=== PATIENT | male | born 1965 | race Caucasian/White ===

== ENCOUNTER → 2019-09-19 | Outpatient (CLI) | payer OTHER ==
--- NOTE | 2019-09-20 08:00 | REPVR ---
PROCEDURE INFORMATION: Exam: MR Lumbar Spine Without Contrast. Exam date and time: 09/19/2019 5:59 PM Age: 54 years old Clinical indication: Condition or disease; Disc degeneration; Lumbar region; Additional info: Other intervertebral disc degeneration lumbar region TECHNIQUE: Imaging protocol: Multiplanar magnetic resonance images of the lumbar spine without intravenous contrast. COMPARISON: No relevant prior studies available. FINDINGS: Vertebrae: Vertebral heights are maintained. Mild grade 1 anterior listhesis of L5 on S1 with uncovering of posterior disc. Spinal cord: Normal signal. No cord compression. L1-L2: Mild diffuse disc bulge with central and right paracentral small disc protrusion with annular fissure, bilateral facet joint arthropathy and ligamentum flavum hypertrophy resulting in mild indentation on thecal sac. Bilateral neural foramina are patent. L2-L3: Mild diffuse disc bulge without any significant central spinal canal stenosis or neural foraminal narrowing. L3-L4: Mild diffuse disc bulge with bilateral facet joint arthropathy and ligamentum flavum hypertrophy without any significant central spinal canal stenosis or left neural foraminal narrowing. Mild right neural foraminal narrowing. L4-L5: Mild diffuse disc bulge with small central disc protrusion, bilateral facet joint arthropathy and ligamentum flavum hypertrophy causing mild indentation on thecal sac and mild right neural foraminal narrowing. Left neural foramina is patent. L5-S1: Mild loss of disc space with disc desiccation. Mild grade 1 anterior listhesis of L5 on S1 measuring approximately 5.3 mm resulting in uncovering of the posterior disc, diffuse disc bulge, bilateral facet joint arthropathy and ligamentum flavum hypertrophy resulting in mild indentation on the thecal sac and mild to moderate bilateral neural foraminal narrowing, right greater than left with abutment of the exiting right L5 nerve root. Soft tissues: Unremarkable. IMPRESSION: No acute finding. Multilevel degenerative disc disease as described in detail above. Findings are most marked at the level of L5/S1;L5-S1: Mild loss of disc space with disc desiccation. Mild grade 1 anterior listhesis of L5 on S1 measuring approximately 5.3 mm resulting in uncovering of the posterior disc, diffuse disc bulge, bilateral facet joint arthropathy and ligamentum flavum hypertrophy resulting in mild indentation on the thecal sac and mild to moderate bilateral neural foraminal narrowing, right greater than left with abutment of the exiting right L5 nerve root. Electronically signed by: Ivette Burgess On 09/20/2019 07:59:33 AM
== END ==
LOC: M RAD 16:28
PROVIDERS: ATTEND Physician Assistant
DX: M51.36 Other intervertebral disc degeneration, lumbar region (principal)

== ENCOUNTER → 2020-01-02 | Outpatient (REF) | payer OTHER ==
[2020-01-03 16:38] LABS: MALB URINE SIEMENS < 5.0 MG/L; MAU/CREAT RATIO 11.6 MCG/MG (0.0-30.0)
== END ==
LOC: M LAB REF 14:45
PROVIDERS: ATTEND Nurse Practitioner Family
DX: E11.65 Type 2 diabetes mellitus with hyperglycemia (principal)

== ENCOUNTER → 2021-01-02 | Outpatient (REF) | payer OTHER ==
[2021-01-02 18:03] LABS: CREATININE, URINE 40.8 MG/DL; MALB URINE SIEMENS < 5.0 MG/L; MAU/CREAT RATIO 12.2 MCG/MG (0.0-30.0)
== END ==
LOC: M LAB REF 16:50
PROVIDERS: ATTEND Nurse Practitioner Family
DX: E11.65 Type 2 diabetes mellitus with hyperglycemia (principal)

== ENCOUNTER → 2021-12-31 | Outpatient (REF) | payer OTHER ==
[2021-12-31 18:38] LABS: CREATININE, URINE 40.9 MG/DL; MALB URINE SIEMENS 5.9 MG/L; MAU/CREAT RATIO 14.4 MCG/MG (0.0-30.0)
== END ==
LOC: M LAB REF 16:45
PROVIDERS: ATTEND Nurse Practitioner Family
DX: E11.65 Type 2 diabetes mellitus with hyperglycemia (principal)

== ENCOUNTER → 2023-01-07 | Outpatient (REF) | payer OTHER ==
[2023-01-07 18:37] LABS: CREATININE, URINE 43.2 MG/DL; MALB URINE SIEMENS < 3.0 MG/L; MAU/CREAT RATIO 6.9 MCG/MG (0.0-30.0)
== END ==
LOC: M LAB REF 17:47
PROVIDERS: ATTEND Nurse Practitioner Family
DX: E11.65 Type 2 diabetes mellitus with hyperglycemia (principal)

== ENCOUNTER → 2024-11-08 | Outpatient (CLI) | payer OTHER ==
[2024-11-08 16:54] LABS: HEMOGLOBIN A1c 7.4 % (4.0-6.0)
== END ==
LOC: M PLALAB 12:27
PROVIDERS: ATTEND Nurse Practitioner Family
DX: E11.65 Type 2 diabetes mellitus with hyperglycemia (principal)